=== PATIENT | male | born 1960 | race Caucasian/White ===

== ENCOUNTER 2017-12-21 11:16 | Emergency (ER) | payer OTHER ==
[2017-12-21 11:21] VITALS: BP 169/85; PULSE 70; RESP 20; TEMP 98.2
--- NOTE | 2017-12-21 12:17 | XR ---
EXAMINATION TYPE: XR knee complete RT DATE OF EXAM: 12/21/2017 CLINICAL HISTORY: pain TECHNIQUE: Three views of the right knee are obtained. COMPARISON: None. FINDINGS: There is no acute fracture/dislocation. The tri-compartment joint spaces appear mildly na rrowed. Intercondylar spur formation. MCL calcification. The overlying soft tissue appears unremarkab le. IMPRESSION: There is no acute fracture or dislocation.ICD 10 NO FRACTURE, INITIAL EVALUATION
[2017-12-21] MEDS ORDERED: KETOROLAC 30 MG/ML 1 ML VIAL IM STA (13:12)
--- NOTE | 2017-12-21 13:20 | ED ---
General Adult HPI - General Chief complaint: Extremity Injury, Lower Stated complaint: [facility]-Knee Injury Time Seen by Provider: 12/21/17 12:16 Source: patient, RN notes reviewed Mode of arrival: ambulatory Limitations: no limitations - History of Present Illness Initial comments: 57-year-old male presents to the emergency department for a chief complaint of right knee pain 4 hours. Patient states he was working when he was pressing against a wall with his lower legs. Patient states he felt a pressure on the lateral aspect of his right knee. Patient states he has been walking on it but it is somewhat painful. Patient states he feels like it is "tightening up". Patient denies any other injuries. Patient denies any pain in the hip or foot. Patient has no other complaints at this time including shortness of breath, chest pain, abdominal pain, nausea or vomiting, headache, or visual changes. - Related Data Home Medications Medication Instructions Recorded Confirmed Simvastatin [Zocor] 20 mg PO DAILY 12/21/17 12/21/17 Allergies Allergy/AdvReac Type Severity Reaction Status Date / Time No Known Allergies Allergy Verified 12/21/17 12:40 Review of Systems ROS Statement: Those systems with pertinent positive or pertinent negative responses have been documented in the HPI. ROS Other: All systems not noted in ROS Statement are negative. Past Medical History Past Medical History: Hyperlipidemia History of Any Multi-Drug Resistant Organisms: None Reported Past Surgical History: Orthopedic Surgery Past Psychological History: No Psychological Hx Reported Smoking Status: Former smoker Past Alcohol Use History: None Reported Past Drug Use History: None Reported General Exam Limitations: no limitations General appearance: alert, in no apparent distress Head exam: Present: atraumatic, normocephalic, normal inspection Eye exam: Present: normal appearance. Absent: scleral icterus, conjunctival injection ENT exam: Present: normal exam, mucous membranes moist Neck exam: Present: normal inspection, full ROM. Absent: tenderness, meningismus, lymphadenopathy Respiratory exam: Present: normal lung sounds bilaterally. Absent: respiratory distress, wheezes, rales, rhonchi, stridor Cardiovascular Exam: Present: regular rate, normal rhythm, normal heart sounds. Absent: systolic murmur, diastolic murmur, rubs, gallop, clicks Extremities exam: Present: full ROM (Full range of motion of the right knee including flexion and extension. Patient does have pain with full flexion and full extension.), normal capillary refill (Capillary refill less than 2 seconds and pedal pulse 2+), other (Sensation intact in right lower extremity. ). Absent: tenderness (No tenderness to the right knee.), joint swelling (No swelling or ecchymosis noted in the right knee), calf tenderness (No tenderness in the calf, no increased swelling warmth or redness.) Neurological exam: Present: alert, oriented X3, CN II-XII intact Psychiatric exam: Present: normal affect, normal mood Course Vital Signs 12/21/17 11:19 Temperature 98.2 F Pulse Rate 70 Respiratory 20 Rate Blood Pressure 169/85 O2 Sat by Pulse 98 Oximetry Medical Decision Making - Medical Decision Making 57-year-old male sent to the emergency department for chief complaint of right knee pain. Patient is able to ambulate on the right knee. He has pain with full flexion and full extension. He also has complained of pain with varus stress to the knee. Neurovascular intact in the right lower extremity. X-ray shows calcification of MCL but no fractures or dislocations. Patient was given a knee immobilizer and will follow up with orthopedics. He will return if he has any worsening symptoms. Otherwise he will take Motrin and rest ice and elevate the right knee and use crutches. Disposition Clinical Impression: Knee pain Disposition: HOME SELF-CARE Condition: Good Instructions: Knee Pain (ED) Additional Instructions: Please rest ice and elevate the right knee. Use immobilizer and crutches. Follow-up with primary care and orthopedics in 1-2 days. Return to the emergency department if you have any worsening symptoms. Is patient prescribed a controlled substance at d/c from ED?: No Referrals: Nonstaff,Physician [Primary Care Provider] - 1-2 days Saji Man DO [Doctor of Osteopathic Medicine] - 1-2 days Time of Disposition: 13:19
== END 2017-12-21 13:30 | disposition home or self-care (01) ==
LOC: EC 11:16
DX: M25.561 Pain in right knee (principal); E78.5 Hyperlipidemia, unspecified; Z87.891 Personal history of nicotine dependence; Z79.899 Other long term (current) drug therapy
CPT/HCPCS: 73562; 99283; 96372; L1830; J1885